=== PATIENT | male | born 1930 | race Caucasian/White ===

== ENCOUNTER 2017-07-19 21:06 | Emergency (ER) | payer MEDICARE, BC ==
[~2017-07-19] VITALS: Ht 160 cm; Wt 80.7 kg
--- NOTE | 2017-07-19 21:24 | NUR ---
DR. OLSON AT BEDSIDE FOR MSE.
[2017-07-19] MEDS ORDERED: BIFI4CAP PO (21:34)
[2017-07-19] MEDS ORDERED: FURO40TA5 PO (21:34)
[2017-07-19] MEDS ORDERED: INSU100V7 SQ (21:34)
[2017-07-19] MEDS ORDERED: SENN-146 PO (21:34)
[2017-07-19] MEDS ORDERED: MESA500C PO (21:34)
[2017-07-19] MEDS ORDERED: CHOL10005 PO (21:34)
[2017-07-19] MEDS ORDERED: ATOR20TA PO (21:34)
[2017-07-19] MEDS ORDERED: DONE10TA44 PO (21:34)
[2017-07-19] MEDS ORDERED: SPIR25TA4 PO (21:34)
[2017-07-19] MEDS ORDERED: isosorbide PO (21:34)
[2017-07-19] MEDS ORDERED: DOXA4TAB3 PO (21:34)
[2017-07-19] MEDS ORDERED: APIX2.5T PO (21:34)
[2017-07-19] MEDS ORDERED: FOLI1TAB16 PO (21:34)
[2017-07-19] MEDS ORDERED: MEMA28CA PO (21:34)
[2017-07-19] MEDS ORDERED: MULT1TAB73 PO (21:34)
[2017-07-19 22:06] LABS: BASOPHILS % (AUTO) 0.5 % (0.0-2.0); EOSINOPHILS # (AUTO) 0.1 K/uL (0.0-0.7); EOSINOPHILS % (AUTO) 0.9 % (0.0-7.0); HEMATOCRIT 35.3 % (40-50); HEMOGLOBIN 11.6 G/DL (14.0-18.0); LYMPHOCYTES # (AUTO) 0.9 K/UL (0.8-4.8); LYMPHOCYTES % (AUTO) 10.1 % (20.5-51.5); MEAN CORPUSCULAR HEMOGLOBIN 26.6 UUG (27.0-31.0); MEAN CORPUSCULAR HGB CONC 33 g/dL (32.0-37.0); MEAN CORPUSCULAR VOLUME 81.3 FL (82.0-92.0); MONOCYTES # (AUTO) 0.8 K/UL (0.1-1.30); MONOCYTES % (AUTO) 8.5 % (0.0-11.0); NEUTROPHILS # (AUTO) 7.3 K/UL (1.8-8.9); PLATELET COUNT (AUTO) 175 K/UL (150-450); RED BLOOD CELL COUNT(AUTO) 4.34 MIL/UL (4.7-6.1); WHITE BLOOD COUNT (AUTO) 9.1 K/UL (4.0-11.2)
[2017-07-19 22:18] LABS: *BILIRUBIN,URIN NEGATIVE (NEGATIVE); *BLOOD, URINE Trace-lysed (NEGATIVE); *CLARITY,URINE CLEAR (CLEAR); *COLOR,URINE YELLOW (YELLOW); *KETONES,URINE NEGATIVE (NEGATIVE); *PROTEIN,URINE TRACE (NEGATIVE); *UROBILINOGEN,URINE 0.2 E.U./dl (NORMAL); LEUKOCYTE ESTERASE ,URINE NEGATIVE (NEGATIVE); NITRITE, URINE NEGATIVE (NEGATIVE); PH,URINE 5.5 (5.0-8.0); UGLUCOSE NEGATIVE (NEGATIVE)
[2017-07-19 22:18] LABS: CARBON DIOXIDE 31 mmol/L (21-32); CHLORIDE 97 mmol/L (98-107); CREATININE 1.3 mg/dL (0.6-1.3); GLUCOSE 132 mg/dL (74-106); POTASSIUM 4.9 mmol/L (3.5-5.1); UREA NITROGEN, BLOOD 24 mg/dL (7-18)
[2017-07-19 22:23] LABS: ALANINE AMINOTRANSFERASE 20 U/L (16-63); ALKALINE PHOSPHATASE 60 U/L (50-136); ASPARTATE AMINOTRANSFERASE 15 U/L (15-37); BILIRUBIN,DIRECT 0.1 mg/dL (0.0-0.2); BILIRUBIN,TOTAL 0.3 mg/dL (0.2-1.0); TOTAL PROTEIN, SERUM 7.1 g/dL (6.4-8.2)
[2017-07-19 22:25] LABS: RBC,URINE 0-3 /HPF (0-3); SQUAMOUS EPITHELIAL CELL,UR FEW /HPF (NONE SEEN); WBC,URINE NONE SEEN /HPF (0-3)
--- NOTE | 2017-07-19 22:35 | NUR ---
PT RETURNED FROM CT-SCAN, CONNECTED TO THE MONITOR.
--- NOTE | 2017-07-19 23:59 | NUR ---
DR OCONNELL, PATIENT'S ARCH PAD CEMENTER CALLED PER FAMILY REQUEST. FAMILY STATES PATIENT HAS H/O LOW HEART RATE.
--- NOTE | 2017-07-20 00:30 | NUR ---
PATIENT AND FAMILY DO NOT WANT TO STAY IN THE HOSPITAL. FAMILY STATES THAT SINCE HE HAS A H/H LOW HEART RATE AND HE FEELS OK THAT THEY WANT TO GO HOME. DR OLSON HAS SPOKEN TO FAMILY AND PATIENT EXPLAINING THAT PATIENT NEEDS TO BE MONITORED AT THE HISPITAL.
--- NOTE | 2017-07-20 01:18 | NUR ---
FAMILY AND PATIENT WANT TO LEAVE AMA, DR. OLSON IN TO SPEAK WITH FAMILY. PATIENT AND FAMILY DO NOT WANT TO STAY. AMA FORM SIGNED.
--- NOTE | 2017-07-20 01:30 | NUR ---
Patient does not wish to proceed with medical care recommended by Dr. OLSON. Patient given information related to possible complications, up to and including , which could occur as a result of leaving the hospital at this time. Patient verbalizes understanding of risks involved due to leaving against medical advice. Patient has signed AMA form.
[2017-07-20 01:33] VITALS: BP 151/73
== END 2017-07-20 01:33 | disposition home or self-care (01) ==
LOC: MERGE 21:15 → ER 21:15
DX: S00.01XA Abrasion of scalp, initial encounter (principal); I48.91 Unspecified atrial fibrillation; F03.90 Unspecified dementia, unspecified severity, without behavioral disturbance, psychotic disturbance, mood disturbance, and anxiety; D64.9 Anemia, unspecified; I10 Essential (primary) hypertension; E78.00 Pure hypercholesterolemia, unspecified; E11.9 Type 2 diabetes mellitus without complications; R55 Syncope and collapse; Z53.21 Procedure and treatment not carried out due to patient leaving prior to being seen by health care provider; Z79.4 Long term (current) use of insulin; Z79.01 Long term (current) use of anticoagulants; W18.09XA Striking against other object with subsequent fall, initial encounter; Y93.89 Activity, other specified; Y92.9 Unspecified place or not applicable; Y99.9 Unspecified external cause status
CPT/HCPCS: 36415; 70450; 71010; 72125; 80048; 80076; 81001; 84443; 84484; 85025; 85730; 87086; 93005; 99291; A4663; 70030-TC; J7030